=== PATIENT | female | born 1975 | race Caucasian/White ===

== ENCOUNTER 2020-07-27 18:31 | Emergency (ER) | payer BC, OTHER, SELFPAY ==
[2020-07-27] MEDS ORDERED: Metoclopramide HCl 10 MG/2 ML VIAL ONE (19:20)
[2020-07-27] MEDS ORDERED: Ondansetron PF 4 MG/2 ML Vial ONE (19:20)
[2020-07-27 19:27] LABS: #Basophils 0.1 thou/uL (0.0-0.2); #Eosinphils 0.3 thou/uL (0.0-0.7); #Lymphocytes 1.6 thou/uL (1.20-3.40); #Monocytes 1.1 thou/uL (0.11-0.59); #Neutrophils 9.1 thou/uL (1.40-6.50); %Basophils 0.5 % (0.0-1.0); %Eosinophils 2.2 % (0.0-10.0); %Lymphocytes 13.1 % (21.0-51.0); %Monocytes 8.7 % (0.0-10.0); %Neutrophils 75.5 % (42.0-75.0); Hemoglobin 15.7 g/dL (12.0-16.0); Mean Corpuscular HGB CONC 35.1 g/dL (32.0-36.0); Mean Corpuscular Hemoglobin 33.9 pg (27.0-31.0); Mean Corpuscular Volume 96.4 fL (78.0-98.0); Mean Platelet Volume 9.2 fL (7.4-10.4); Platelet Count 264 thou/uL (130-400); RBC Distribution Width 11.5 % (11.5-14.5); Red Blood Cell (RBC) Count 4.63 mill/uL (4.20-5.40)
[2020-07-27 19:40] LABS: ALT (SGPT) 44 U/L (8-55); AST (SGOT) 34 U/L (5-34); Albumin 4.2 g/dL (3.5-5.0); Alkaline Phosphatase 53 U/L (40-110); Anion Gap 15 mmol/L (10-20); BUN (Urea Nitrogen) 8 mg/dL (7.0-18.7); Bilirubin, Total 0.4 mg/dL (0.2-1.2); Calc. Creatinine Clearance 0 mL/min (70-130); Calcium 8.8 mg/dL (7.8-10.44); Carbon Dioxide 23 mmol/L (22-29); Chloride 104 mmol/L (98-107); Globulin 3.9 g/dL (2.4-3.5); Glucose 95 mg/dL (70-105); Lipase 32 U/L (8-78); Potassium 3.3 mmol/L (3.5-5.1); Protein, Total 8.1 g/dL (6.0-8.3); Sodium 139 mmol/L (136-145)
[2020-07-27] MEDS ORDERED: Ketorolac Tromethamine 30 MG/ML VIAL ONE (20:09)
[2020-07-27] MEDS ORDERED: Promethazine HCl 25 MG/ML VIAL ONE (20:22)
== END 2020-07-27 22:27 | disposition home or self-care (01) ==
LOC: BURERS 18:31
DX: E86.0 Dehydration (principal); R11.2 Nausea with vomiting, unspecified
CPT/HCPCS: 74019; 80053; 83690; 85025; 93005; 96365; 96372; 96375; J0500; J1885; J2405; J2550; J2765